=== PATIENT | female | born 1935 | race Caucasian/White ===

== ENCOUNTER 2016-08-02 09:14 | Emergency (ER) | payer OTHER ==
[~2016-08-02] VITALS: Ht 165.1 cm; Wt 74.5 kg
[~2016-08-02 09:14] MED LIST: ACEPHEN325 MG PR; ACETAMINOPHEN325 M1 PO; AMLODIPINE BESY10 MG PO; AQUAPHOR OINTM105 GM TP; ASPIRIN E.C.81 M1 PO; ATENOLOL100 MG PO; ATENOLOL50 M1 PO; BACTROBAN CREAM15 GM TP; BISAC-EVAC10 MG PR; CALCIUM 500 MG1 EACH PO; CATAPRES0.1 MG PO; CIPRO500 MG PO; CIPROFLOXACIN250 MG PO; ELIQUIS2.5 MG PO; ELIQUIS5 MG PO; FERROUS GLUCON324 MG PO; FUROSEMIDE20 MG PO; GABAPENTIN100 MG PO; GLIPIZIDE5 M1 PO; GLUCOPHAGE500 MG PO; HUMALOG100 UNIT/2 SC; HYDRALAZINE HCL25 MG PO; IRON325 M1 PO; KLOR-CON M2020 MEQ PO; LANTUS 3 M100 UNITS1 SQ; LIPITOR10 MG PO; LIPITOR20 MG PO; LISINOPRIL20 MG PO; LISINOPRIL5 MG PO; LOPRESSOR25 MG PO; METFORMIN HCL1000 MG PO; MORGIDOX100 MG PO; MULTIVITAMIN1 EAC2 PO; NITROSTAT0.4 MG SL; NORVASC5 MG PO; OXYCONTIN10 MG PO; PANTOPRAZOLE SO40 MG PO; PERCOCET 5/31 TABLET PO; PLAVIX75 MG PO; PREVACID15 MG PO; PREVACID30 MG PO; PROTONIX40 MG PO; ROXICODONE5 MG PO; SENNA CONCENTR8.6 MG PO; SERTRALINE HCL25 MG PO; SILVADENE,SSD,T20 GM TP; TRAMADOL HCL50 MG PO; TUMS500 MG PO; VITAMIN C500 M1 PO; VITAMIN D31000 UNIT PO; ZOLPIDEM TARTRAT5 MG PO; Zestril,Prinivil PO; [UNRECOGNIZED DRUG - OTHER] PO
[2016-08-02] MEDS ORDERED: NORCO 5/3251 TABLET PO (12:11)
[2016-08-02] MEDS ORDERED: STOOL SOFTENER250 MG PO (12:11)
[2016-08-02] MEDS ORDERED: VALTREX1000 MG PO (12:11)
[2016-08-02 12:50] VITALS: BP 161/85
== END 2016-08-02 12:50 | disposition home or self-care (01) ==
LOC: EME 09:14
DX: B02.9 Zoster without complications (principal); I12.9 Hypertensive chronic kidney disease with stage 1 through stage 4 chronic kidney disease, or unspecified chronic kidney disease; E11.22 Type 2 diabetes mellitus with diabetic chronic kidney disease; N18.3 Chronic kidney disease, stage 3 (moderate); Z79.4 Long term (current) use of insulin; E78.5 Hyperlipidemia, unspecified; Z79.01 Long term (current) use of anticoagulants; Z79.82 Long term (current) use of aspirin
CPT/HCPCS: 99281; 99283